=== PATIENT | female | born 1990 | race Caucasian/White ===

== ENCOUNTER → 2024-02-29 | Outpatient (CLI) | payer BC | END | disposition home or self-care (01) | LOC: US 07:02 | PROVIDERS: ATTEND Family Medicine | DX: N83.201 Unspecified ovarian cyst, right side (principal); R19.00 Intra-abdominal and pelvic swelling, mass and lump, unspecified site; N92.6 Irregular menstruation, unspecified | CPT/HCPCS: 76830; 76856 ==